=== PATIENT | female | born 1960 | race Caucasian/White ===

== ENCOUNTER 2023-05-02 09:12 | Emergency (ER) | payer OTHER, SELFPAY ==
[2023-05-02] VITALS (98 sets, daily range): BP systolic 87–196; BP diastolic 59–124; PULSE 61–88; RESP 20; TEMP 36.6; O2SAT 89–99; BMI 24.8
--- NOTE | 2023-05-02 09:34 | ED_ITS ---
HPI - General Adult General Chief complaint: Chest Pain Stated complaint: Chest tight, jaw pain Time Seen by Provider: 05/02/23 09:34 History of Present Illness HPI narrative: pt has reflux. last week had similar episode that lasted 2 hours, today pain started at 7am, that radiates to L jaw. has taken omeprazole x2 with no relief. pt feels like it is her reflux. 62-year-old woman presenting to the emergency department with concern of chest and jaw pain. This is been going on now for about 2-1/2 hours. Has been feeling exacerbation of what she would think is her usual heartburn/reflux intermittently since last week. Started taking omeprazole again intermittently. Took a couple doses of that along with liquid antacid which usually settles things and just has not made a difference today. No symptoms in her extremities. This pain is a pressure. She demonstrates to her midsternal area. No cough or cold symptoms. No fever. No shortness of breath. She does smoke. Brother 2 weeks ago from heart attack? Father from [place] at age 62. Apparently she herself had extensive evaluation partially related other illness not so long ago that she says was clear from cardiovascular standpoint. No radicular pain into her extremities. Accompanied here by her . Currently without healthcare insurance. Notes that does not qualify for state health insurance. Related Data Home Medications Medication Instructions Recorded Confirmed atorvastatin 20 mg tablet 20 mg PO DAILY 05/02/23 05/02/23 buspirone 10 mg tablet 10 mg PO BID 05/02/23 05/02/23 lisinopril 40 mg tablet 40 mg PO DAILY 05/02/23 05/02/23 Allergies Allergy/AdvReac Type Severity Reaction Status Date / Time ketorolac [From Toradol] Allergy Intermediate Verified 05/02/23 09:23 Review of Systems Status of ROS: Reports: 6 or more systems reviewed and unremarkable except as noted in History and below PFS PFS Social History Smoking Status: Never smoker How often do you have a drink containing alcohol: never AUDIT-C Alcohol total score: 0 Non-prescribed substance use: denies use Exam Narrative: Exam Narrative: Ms. Chacon is pleasant. Does seem anxious. Breathing as if uncomfortable. Skin is warm and dry. Extremities are without edema. She is well-perfused. Lungs are clear. Though breathing is a little labored. Heart in regular rate and rhythm without murmur or gallop identified. Abdomen is soft and tender in the epigastrium. Oropharynx is generally trace erythema. Bright. She had not been noting sore throat. Const: Vital Signs, click to edit/add: Vital Signs - 24 hr 05/02/23 09:16 05/02/23 09:22 05/02/23 09:23 Temperature 97.9 F Pulse Rate 76 Pulse Rate [Pulse Oximeter] 82 Respiratory Rate 20 Blood Pressure 187/117 H Blood Pressure [Le ft Upper Arm] 187/117 H Pulse Oximetry 98 98 Oxygen Delivery Me thod Room Air Oxygen Flow Rate 05/02/23 09:30 05/02/23 09:32 05/02/23 09:33 Temperature Pulse Rate 77 79 80 Pulse Rate [Pulse Oximeter] Respiratory Rate Blood Pressure 196/124 H Blood Pressure [Le ft Upper Arm] Pulse Oximetry 99 99 98 Oxygen Delivery Me thod Oxygen Flow Rate 05/02/23 09:58 05/02/23 10:00 05/02/23 10:00 Temperature Pulse Rate 82 82 Pulse Rate [Pulse Oximeter] Respiratory Rate Blood Pressure 147/91 H Blood Pressure [Le ft Upper Arm] Pulse Oximetry 91 91 Oxygen Delivery Me thod Nasal Cannula Oxygen Flow Rate 2 05/02/23 10:02 05/02/23 10:03 05/02/23 10:08 Temperature Pulse Rate 85 84 81 Pulse Rate [Pulse Oximeter] Respiratory Rate Blood Pressure 151/93 H 131/85 Blood Pressure [Le ft Upper Arm] Pulse Oximetry 93 89 89 Oxygen Delivery Me thod Oxygen Flow Rate 05/02/23 10:09 05/02/23 10:15 05/02/23 10:16 Temperature Pulse Rate 79 80 84 Pulse Rate [Pulse Oximeter] Respiratory Rate Blood Pressure 138/86 138/97 H Blood Pressure [Le ft Upper Arm] Pulse Oximetry 92 91 91 Oxygen Delivery Me thod Oxygen Flow Rate 05/02/23 10:30 05/02/23 10:31 05/02/23 10:32 Temperature Pulse Rate 72 72 74 Pulse Rate [Pulse Oximeter] Respiratory Rate Blood Pressure 142/85 H Blood Pressure [Le ft Upper Arm] Pulse Oximetry 96 96 95 Oxygen Delivery Me thod Oxygen Flow Rate 05/02/23 10:47 05/02/23 10:48 05/02/23 11:00 Temperature Pulse Rate 76 74 70 Pulse Rate [Pulse Oximeter] Respiratory Rate Blood Pressure 149/94 H Blood Pressure [Le ft Upper Arm] Pulse Oximetry 97 98 97 Oxygen Delivery Me thod Oxygen Flow Rate 05/02/23 11:02 05/02/23 11:20 05/02/23 11:24 Temperature Pulse Rate 74 72 76 Pulse Rate [Pulse Oximeter] Respiratory Rate Blood Pressure 140/84 H 175/102 H Blood Pressure [Le ft Upper Arm] Pulse Oximetry 96 97 94 Oxygen Delivery Me thod Oxygen Flow Rate 05/02/23 11:30 05/02/23 11:31 05/02/23 11:38 Temperature Pulse Rate 72 75 Pulse Rate [Pulse Oximeter] Respiratory Rate Blood Pressure 128/89 Blood Pressure [Le ft Upper Arm] Pulse Oximetry 96 96 Oxygen Delivery Me thod Oxygen Flow Rate 05/02/23 11:39 05/02/23 11:49 05/02/23 12:02 Temperature Pulse Rate 72 Pulse Rate [Pulse Oximeter] Respiratory Rate Blood Pressure 142/82 H 135/82 136/82 Blood Pressure [Le ft Upper Arm] Pulse Oximetry 95 Oxygen Delivery Me thod Oxygen Flow Rate 05/02/23 12:18 05/02/23 12:27 05/02/23 12:30 Temperature Pulse Rate 69 69 68 Pulse Rate [Pulse Oximeter] Respiratory Rate Blood Pressure 123/77 Blood Pressure [Le ft Upper Arm] Pulse Oximetry 96 95 96 Oxygen Delivery Me thod Oxygen Flow Rate 05/02/23 12:32 05/02/23 12:47 05/02/23 12:48 Temperature Pulse Rate 68 71 69 Pulse Rate [Pulse Oximeter] Respiratory Rate Blood Pressure 125/80 113/73 Blood Pressure [Le ft Upper Arm] Pulse Oximetry 96 94 96 Oxygen Delivery Me thod Oxygen Flow Rate 05/02/23 13:00 05/02/23 13:02 05/02/23 13:03 Temperature Pulse Rate 68 73 74 Pulse Rate [Pulse Oximeter] Respiratory Rate Blood Pressure 125/83 Blood Pressure [Le ft Upper Arm] Pulse Oximetry 96 96 95 Oxygen Delivery Me thod Oxygen Flow Rate 05/02/23 13:16 05/02/23 13:30 05/02/23 13:32 Temperature Pulse Rate 87 70 71 Pulse Rate [Pulse Oximeter] Respiratory Rate Blood Pressure 144/101 H 154/95 H Blood Pressure [Le ft Upper Arm] Pulse Oximetry 94 93 93 Oxygen Delivery Me thod Oxygen Flow Rate 05/02/23 13:33 05/02/23 13:49 05/02/23 14:00 Temperature Pulse Rate 72 70 68 Pulse Rate [Pulse Oximeter] Respiratory Rate Blood Pressure 122/74 Blood Pressure [Le ft Upper Arm] Pulse Oximetry 94 93 93 Oxygen Delivery Me thod Oxygen Flow Rate 05/02/23 14:02 05/02/23 14:17 Temperature Pulse Rate 68 69 Pulse Rate [Pulse Oximeter] Respiratory Rate Blood Pressure 114/86 108/79 Blood Pressure [Le ft Upper Arm] Pulse Oximetry 92 95 Oxygen Delivery Me thod Oxygen Flow Rate Course Vital Signs Vital signs: Initial Vital Signs Temperature 97.9 F 05/02/23 09:16 Temperature Source Temporal Artery Scan 05/02/23 09:16 Pulse Rate 82 05/02/23 09:16 Respiratory Rate 20 05/02/23 09:16 Blood Pressure 187/117 H 05/02/23 09:16 Blood Pressure Mean 140 H 05/02/23 09:16 Blood Pressure Position Supine 05/02/23 09:16 Pulse Oximetry 98 05/02/23 09:16 Oxygen Delivery Method Room Air 05/02/23 09:16 Vital Signs Temperature 97.9 F 05/02/23 09:16 Pulse Rate 82 05/02/23 09:16 Respiratory Rate 20 05/02/23 09:16 Blood Pressure 187/117 H 05/02/23 09:16 Pulse Oximetry 98 05/02/23 09:16 Oxygen Delivery Method Room Air 05/02/23 09:16 Temperature 97.9 F 05/02/23 09:16 Pulse Rate 69 05/02/23 14:17 Respiratory Rate 20 05/02/23 09:16 Blood Pressure 108/79 05/02/23 14:17 Pulse Oximetry 95 05/02/23 14:17 Oxygen Delivery Method Nasal Cannula 05/02/23 10:00 Oxygen Flow Rate 2 05/02/23 10:00 Medications Administered Medications: Generic Name Dose Route Start Last Admin Trade Name Freq PRN Reason Stop Dose Admin Nitroglycerin/Dextrose 25,000 mcg in 250 mls @ 3 mls/hr 05/02/23 10:56 05/02/23 13:34 Nitroglycerin/Dextrose IVPB 30 mcg/min .TITRATE PRN 18 mls/hr chest pain Infusion 5 MCG/MIN Heparin Sodium/Dextrose 25,000 unit in 500 mls @ 0 mls/hr 05/02/23 11:45 05/02/23 13:47 Heparin IV 750 unit/hr .Q0M SHERRI 15 mls/hr Administration Protocol Per Protocol Morphine Sulfate 4 mg 05/02/23 10:23 05/02/23 10:32 Morphine 4 Mg/Ml Inj IVP 4 mg ONCE PRN Administration Pain Nitroglycerin 0.4 mg 05/02/23 10:00 05/02/23 10:09 Nitroglycerin 0.4 Mg Tab.Subl SUBLINGUAL 0.4 mg Q5M PRN Administration Pain Discontinued Medications Generic Name Dose Route Start Last Admin Trade Name Freq PRN Reason Stop Dose Admin Aspirin 324 mg 05/02/23 10:09 05/02/23 10:12 Aspirin 81 Mg Tab.Chew PO 05/02/23 10:10 324 mg ONCE ONE Administration Fentanyl 50 mcg 05/02/23 10:55 05/02/23 11:02 Fentanyl 100 Mcg/2 Ml Inj IVP 05/02/23 10:56 50 mcg ONCE ONE Administration Heparin Sodium (Porcine) 3,800 unit 05/02/23 11:31 05/02/23 13:45 Heparin 5,000 Unit/0.5 Ml Inj 60 unit/kg (3800 unit) 05/02/23 11:32 3,800 unit IVP Administration ONCE ONE Hydromorphone HCl 0.5 mg 05/02/23 12:46 05/02/23 12:51 Hydromorphone 0.5 Mg/0.5 Ml Inj IVP 05/02/23 12:47 0.5 mg ONCE ONE Administration Sodium Chloride 500 mls @ 500 mls/hr 05/02/23 09:42 05/02/23 11:00 0.9 % Sodium Chloride 500 Ml IV 05/02/23 10:41 Infused .Q1H ONE Infusion Lidocaine/Aluminum/Magnesium/Simeth 30 ml 05/02/23 10:23 05/02/23 10:35 Mag Hydrox/Aluminum Hyd/Simeth 30 Ml Oral.Susp PO 05/02/23 10:24 30 ml ONCE ONE Administration Lorazepam 0.5 mg 05/02/23 09:43 05/02/23 09:56 Lorazepam 2 Mg/Ml Inj IVP 05/02/23 09:44 0.5 mg ONCE ONE Administration Morphine Sulfate 4 mg 05/02/23 09:42 05/02/23 09:56 Morphine 4 Mg/Ml Inj IVP 05/02/23 09:43 4 mg ONCE ONE Administration Nitroglycerin 0.4 mg 05/02/23 09:42 05/02/23 09:53 Nitroglycerin 0.4 Mg Tab.Subl SUBLINGUAL 05/02/23 09:43 0.4 mg ONCE ONE Administration Medical Decision Making MDM Narrative Medical decision making narrative: Ms. Chacon would like something to relieve her discomfort particularly focused on her stomach/GERD. I did offer GI cocktail and we discussed morphine. However upon leaving her room to place orders, informed of point of care troponin at 0.14. I have ordered for nitroglycerin. Certainly has room for this with her blood pressure. Would have concern about ACS here. Symptoms just seem atypical for pulmonary embolus. No infectious prodrome. Certainly could be GERD related with maybe even some spasm of the esophagus. Pericarditis? Pneumomediastinum or pneumothorax? Initiating low-dose fluid bolus and repeat nitroglycerin. This did not appear to change her pain. Morphine reportedly more effective per my conversation with nursing. Also was given lorazepam. Initial EKG as below look to be without ischemic changes. Chest x-ray reviewed by me looks to show cardiomegaly but without infiltrate or pneumothorax. Repeated morphine dose due to persistent pain. Also ordered for aspirin. Initiating nitro drip. I suppose could have concurrent GERD. GI cocktail tried without affect. Recheck troponin with unchanged EKG at around 90 minutes is anticipating conversation with Cardiology. The troponin has gone up from 0.14 to 2.3. Does appear to be ACS/non-STEMI. Anticipating heparin drip. Pain continuing so given fentanyl. Cardiology with further concerns and so will proceed with dissection scan. Held on heparin drip pending the scan. This is unremarkable however there is T1 compression fracture. Also some atelectatic changes favored in the posterior lungs. I do review these images myself. TECHNIQUE: CT chest without contrast and CT chest, abdomen and pelvis acquired with 95 cc Isovue 370 IV contrast, dissection protocol. COMPARISON: Chest radiograph performed today. FINDINGS: CTA: No evidence acute intramural hematoma identified on noncontrast chest CT. Left 3 vessel aortic arch. The thoracic and abdominal aorta are normal in course and caliber. No evidence of aortic aneurysm or dissection. Mild atherosclerotic plaques involving the abdominal aorta. Celiac, SMA and ABHINAV are patent. Mild ostial stenosis of the main renal arteries bilaterally. Accessory right renal artery is patent. Atherosclerotic calcifications of the iliofemoral arteries without significant luminal narrowing. CHEST: Cardiovascular structures: The heart is normal size. No pericardial effusion. Normal size of the main pulmonary artery. Mediastinum and kenny: No mass or adenopathy. Lungs and pleura: Respiratory motion. Elevation of the left hemidiaphragm. Dependent ground-glass opacities in the upper and lower lobes. No pleural effusion or pneumothorax. Chest wall and axilla: No mass or adenopathy. ABDOMEN AND PELVIS: Liver: Postoperative changes following left hepatectomy. Gallbladder and bile ducts: Gallbladder is surgically absent. Mildly dilated CBD measuring 9 mm. Pneumobilia. Pancreas: Unremarkable. Spleen: Unremarkable. Adrenal glands: Unremarkable. Kidneys: Unremarkable. GI tract: Unremarkable. Vascular structures: As above. Lymph nodes: Unremarkable. Miscellaneous: Unremarkable. No free air or significant free fluid. Pelvic Organs: Partially decompressed bladder. Uterus is surgically absent. Bones: Mild L1 superior endplate compression fracture, with approximately 30 percent loss of vertebral body height. No osseous retropulsion or osseous spinal canal stenosis at this level. Grade 1 anterolisthesis of L4 on L5 secondary to severe facet arthropathy. Multilevel degenerative disc disease involving the thoracolumbar spine. IMPRESSION: 1. No evidence of acute aortic syndrome. 2. Acute appearing L1 superior endplate compression fracture with approximately 30 percent loss of vertebral body height. No significant retropulsion. 3. Postoperative changes following left hepatectomy and cholecystectomy. Mild dilation of the common bile duct which may be secondary to reservoir effect. Recommend correlation with liver function tests. 4. Respiratory motion with dependent ground-glass opacities in both lungs, which may be secondary to atelectasis versus less likely pneumonia Continued pain so given dosing of Dilaudid. Accepted by Cardiology to [facility] but with 4+ hour wait. Repeated troponin now at 1.41 Updated cardiology. 2:40 p.m. still with some pain. Anticipating re-dosing opiate. Repeating EKG. Reviewed by me looks like she might be inverting her T-waves in 2 and lateral leads. 245 p.m. spoke with hospitalist from [place] who had immediate bed availability. Accepting pending call back. Continuing on nitro drip of on clear effect other than controlling blood pressures and heparin drip. Also low O2 via nasal cannula with sats in the mid 90s. These actually seem to have coincided with dosing of morphine. Climbing troponins and difficulty controlling pain. Lab Data Lab results reviewed: Yes I reviewed the patient's lab results Labs: Lab Results 05/02/23 05/02/23 05/02/23 Range/Units 09:25 11:10 12:27 WBC 4.47 L (4.50-11.00) K/uL RBC 5.85 H (4.00-5.20) m/uL Hgb 16.9 H (12.0-16.0) gm/dL Hct 52.8 H (33.0-51.0) % MCV 90 (80-100) fL MCH 29 (26-34) pg MCHC 32 (32-36) gm/dL RDW Coeff of Alida 16.4 H (11.5-15.5) % Plt Count 314 (140-440) K/uL Neut % (Auto) 48.3 (42.0-72.0) % Lymph % (Auto) 35.6 (20-44) % Gooding % (Auto) 14.8 H (0.0-11.0) % Eos % (Auto) 0.2 (0.0-7.0) % Baso % (Auto) 0.9 (0.0-3.0) % Neut # (Auto) 2.20 (1.7-7.0) K/uL Lymph # (Auto) 1.60 (0.90-2.90) K/uL Gooding # (Auto) 0.70 (0.00-0.90) K/UL Eos # (Auto) 0.00 (0.00-0.50) K/uL Baso # (Auto) 0.00 (0.00-0.30) K/uL Abs Immat Gran (auto) 0.00 (0.00-0.30) K/uL Imm/Tot Granulo (auto) 0.2 % INR 1.10 (0.91-1.10) APTT 30 (23-33) Seconds D-Dimer Quant (PE/DVT) 0.27 (0.00-0.50) ug/ml Sodium 137 (135-149) mmol/L Potassium 4.1 (3.6-5.1) mmol/L Chloride 103 (96-114) mmol/L Carbon Dioxide 23 (20-32) mmol/L Anion Gap 11 (7-15) mEq/L BUN 16 (7-30) mg/dL Creatinine 0.7 (0.5-1.5) mg/dL Estimated Creat Clear 47.01 Estimated GFR 97 ml/min Glucose 111 (60-115) mg/dL Calcium 9.8 (8.4-10.6) mg/dL Total Bilirubin 0.4 (0.1-1.5) mg/dL Direct Bilirubin 0.2 (0.0-0.5) mg/dL AST 25 (12-35) U/L ALT 15 (4-35) U/L Alkaline Phosphatase 67 (40-150) U/L Troponin I 0.18 H* Cancelled (0.01-0.04) ng/mL NT-Pro-B Natriuret Pep 478 pg/mL Total Protein 7.2 (6.0-8.3) g/dL Albumin 4.5 (3.3-5.0) g/dL Lipase 202 (23-300) U/L Lab Acknowledgement Test Added POC Troponin I 0.14 H 0.26 H (0.01-0.04) ng/ml 05/02/23 Range/Units 13:48 WBC (4.50-11.00) K/uL RBC (4.00-5.20) m/uL Hgb (12.0-16.0) gm/dL Hct (33.0-51.0) % MCV (80-100) fL MCH (26-34) pg MCHC (32-36) gm/dL RDW Coeff of Alida (11.5-15.5) % Plt Count (140-440) K/uL Neut % (Auto) (42.0-72.0) % Lymph % (Auto) (20-44) % Gooding % (Auto) (0.0-11.0) % Eos % (Auto) (0.0-7.0) % Baso % (Auto) (0.0-3.0) % Neut # (Auto) (1.7-7.0) K/uL Lymph # (Auto) (0.90-2.90) K/uL Gooding # (Auto) (0.00-0.90) K/UL Eos # (Auto) (0.00-0.50) K/uL Baso # (Auto) (0.00-0.30) K/uL Abs Immat Gran (auto) (0.00-0.30) K/uL Imm/Tot Granulo (auto) % INR (0.91-1.10) APTT (23-33) Seconds D-Dimer Quant (PE/DVT) (0.00-0.50) ug/ml Sodium (135-149) mmol/L Potassium (3.6-5.1) mmol/L Chloride (96-114) mmol/L Carbon Dioxide (20-32) mmol/L Anion Gap (7-15) mEq/L BUN (7-30) mg/dL Creatinine (0.5-1.5) mg/dL Estimated Creat Clear Estimated GFR ml/min Glucose (60-115) mg/dL Calcium (8.4-10.6) mg/dL Total Bilirubin (0.1-1.5) mg/dL Direct Bilirubin (0.0-0.5) mg/dL AST (12-35) U/L ALT (4-35) U/L Alkaline Phosphatase (40-150) U/L Troponin I (0.01-0.04) ng/mL NT-Pro-B Natriuret Pep pg/mL Total Protein (6.0-8.3) g/dL Albumin (3.3-5.0) g/dL Lipase (23-300) U/L Lab Acknowledgement POC Troponin I 1.41 H (0.01-0.04) ng/ml ECG Data Attestation: I personally reviewed and interpreted this ECG as follows: (Initial EKG reviewed by me shows a sinus rhythm. I see a PVC. Mildly enlarged P-wave. Rate of 73. No clear ischemic changes. The 2nd EKG approximally an hour later looks to be unchanged other than absence and PVCs.) Critical Care Time Critical Care Time Total Critical Care Time in Minutes: 60 Discharge Plan Discharge Clinical Impression: ACS (acute coronary syndrome) Patient Disposition: Xfer Other Discharge Location: [facility] Condition: Stable Prescriptions: No Action buspirone 10 mg tablet 10 mg PO BID lisinopril 40 mg tablet 40 mg PO DAILY atorvastatin 20 mg tablet 20 mg PO DAILY Follow Up/Referrals: Provider,Not a Local [Primary Care Provider] - Stand Alone Forms: ID [employer] Info Instructions
--- NOTE | 2023-05-02 09:43 | CRLHL7_ITS ---
For Patients: As a result of the Century Cures Act, medical imaging exams and procedure reports are released immediately into your electronic medical record. You may view this report before your referring provider. If you have questions, please contact your health care provider. INDICATION: STERNAL CHEST PAIN TECHNIQUE: Chest 1 view COMPARISON: None FINDINGS: Cardiac silhouette is enlarged. Tortuosity aorta. Lungs clear. Degenerative changes. IMPRESSION: No acute findings. Dictated by Alan Uribe MD @ 05/02/2023 10:12:56 AM (Electronically Signed)
[2023-05-02] MEDS: NITROGLYCERIN 0.4 MG TAB.SUBL SUBLINGUAL ×3 (09:53→10:09)
[2023-05-02 09:55] LABS: Basophils Percent Auto 0.9 % (0.0-3.0); Eosinophils Percent Auto 0.2 % (0.0-7.0); Hematocrit 52.8 % (33.0-51.0); Hemoglobin* 16.9 gm/dL (12.0-16.0); Immature Granulocytes Pct Auto 0.2 %; Lymphocytes Percent Auto 35.6 % (20-44); Mean Corpuscular HGB Conc 32 gm/dL (32-36); Mean Corpuscular Hemoglobin 29 pg (26-34); Mean Corpuscular Volume 90 fL (80-100); Monocytes Percent Auto 14.8 % (0.0-11.0); Neutrophils Percent Auto 48.3 % (42.0-72.0); Platelet Count* 314 K/uL (140-440); RDW Coefficient of Variation % 16.4 % (11.5-15.5); Red Blood Count 5.85 m/uL (4.00-5.20); White Blood Count* 4.47 K/uL (4.50-11.00)
[2023-05-02] MEDS: 0.9 % SODIUM CHLORIDE 500 ML 500 ML IV (09:55)
[2023-05-02] MEDS: MORPHINE 4 MG/ML INJ IVP ×7 (09:56→21:49)
[2023-05-02] MEDS: LORazepam 2 MG/ML inj 0.5 MG IVP (09:56)
[2023-05-02 09:59] LABS: Slide Review Reflex No
--- NOTE | 2023-05-02 10:00 | ED.NURSE ---
1 ntg given at 0953 with no relief. ativan and morphine given. pt getting slight relief from that.
[2023-05-02 10:07] LABS: Chloride* 103 mmol/L (96-114); Potassium* 4.1 mmol/L (3.6-5.1); Sodium* 137 mmol/L (135-149)
[2023-05-02 10:08] LABS: Albumin* 4.5 g/dL (3.3-5.0)
[2023-05-02 10:10] LABS: Anion Gap 11 mEq/L (7-15); Carbon Dioxide* 23 mmol/L (20-32); Creatinine* 0.7 mg/dL (0.5-1.5); Est. Creatinine Clearance* 47.01; Estimated Glomerular Filt Rate 97 ml/min
[2023-05-02 10:11] LABS: Alkaline Phosphatase* 67 U/L (40-150); Aspartate Amino Transferase* 25 U/L (12-35); Bilirubin Direct* 0.2 mg/dL (0.0-0.5); Bilirubin Total* 0.4 mg/dL (0.1-1.5); Blood Urea Nitrogen* 16 mg/dL (7-30); Calcium* 9.8 mg/dL (8.4-10.6); Glucose* 111 mg/dL (60-115); Lipase* 202 U/L (23-300); Total Protein* 7.2 g/dL (6.0-8.3)
[2023-05-02 10:12] LABS: Alanine Aminotransferase* 15 U/L (4-35)
[2023-05-02] MEDS: ASPIRIN 81 MG TAB.CHEW 324 MG PO (10:12)
[2023-05-02 10:25] LABS: NT Pro B Type NatriureticPept* 478 pg/mL; Troponin I* 0.18 ng/mL (0.01-0.04)
[2023-05-02] MEDS: MAG HYDROX/ALUMINUM HYD/SIMETH 30 ML ORAL.SUSP PO (10:35)
--- NOTE | 2023-05-02 10:35 | ED.NURSE ---
pain increased to 7after 3 ntg. pain 3 after 2nd dose of morphine.
[2023-05-02] MEDS: fentaNYL 100 MCG/2 ML inj 50 MCG IVP (11:02)
[2023-05-02] MEDS: NITROGLYCERIN/DEXTROSE 25,000 MCG/250 ML BOTTLE 3 MCG IVPB (11:15)
[2023-05-02 11:22] LABS: Troponin, Point-of-Care* 0.14 ng/ml (0.01-0.04)
[2023-05-02 11:33] LABS: Troponin, Point-of-Care* 0.26 ng/ml (0.01-0.04)
--- NOTE | 2023-05-02 11:43 | CRLHL7_ITS ---
For Patients: As a result of the 21st Century Cures Act, medical imaging exams and procedure reports are released immediately into your electronic medical record. You may view this report before your referring provider. If you have questions, please contact your health care provider. INDICATION: Chest pain. TECHNIQUE: CT chest without contrast and CT chest, abdomen and pelvis acquired with 95 cc Isovue 370 IV contrast, dissection protocol. COMPARISON: Chest radiograph performed today. FINDINGS: CTA: No evidence acute intramural hematoma identified on noncontrast chest CT. Left 3 vessel aortic arch. The thoracic and abdominal aorta are normal in course and caliber. No evidence of aortic aneurysm or dissection. Mild atherosclerotic plaques involving the abdominal aorta. Celiac, SMA and ABHINAV are patent. Mild ostial stenosis of the main renal arteries bilaterally. Accessory right renal artery is patent. Atherosclerotic calcifications of the iliofemoral arteries without significant luminal narrowing. CHEST: Cardiovascular structures: The heart is normal size. No pericardial effusion. Normal size of the main pulmonary artery. Mediastinum and kenny: No mass or adenopathy. Lungs and pleura: Respiratory motion. Elevation of the left hemidiaphragm. Dependent ground-glass opacities in the upper and lower lobes. No pleural effusion or pneumothorax. Chest wall and axilla: No mass or adenopathy. ABDOMEN AND PELVIS: Liver: Postoperative changes following left hepatectomy. Gallbladder and bile ducts: Gallbladder is surgically absent. Mildly dilated CBD measuring 9 mm. Pneumobilia. Pancreas: Unremarkable. Spleen: Unremarkable. Adrenal glands: Unremarkable. Kidneys: Unremarkable. GI tract: Unremarkable. Vascular structures: As above. Lymph nodes: Unremarkable. Miscellaneous: Unremarkable. No free air or significant free fluid. Pelvic Organs: Partially decompressed bladder. Uterus is surgically absent. Bones: Mild L1 superior endplate compression fracture, with approximately 30 percent loss of vertebral body height. No osseous retropulsion or osseous spinal canal stenosis at this level. Grade 1 anterolisthesis of L4 on L5 secondary to severe facet arthropathy. Multilevel degenerative disc disease involving the thoracolumbar spine. IMPRESSION: 1. No evidence of acute aortic syndrome. 2. Acute appearing L1 superior endplate compression fracture with approximately 30 percent loss of vertebral body height. No significant retropulsion. 3. Postoperative changes following left hepatectomy and cholecystectomy. Mild dilation of the common bile duct which may be secondary to reservoir effect. Recommend correlation with liver function tests. 4. Respiratory motion with dependent ground-glass opacities in both lungs, which may be secondary to atelectasis versus less likely pneumonia. Please note that all CT scans at this facility use dose modulation, iterative reconstruction, and/or weight-based dosing when appropriate to reduce radiation dose to as low as reasonably achievable. Dictated by Delicia Lynn MD @ 05/02/2023 1:00:37 PM (Electronically Signed)
[2023-05-02] MEDS: HYDROmorphone 0.5 mg/0.5 ml inj IVP ×2 (12:51→16:53)
[2023-05-02 12:55] LABS: Prothrombin Time 14.9 Seconds
[2023-05-02 12:56] LABS: D Dimer Quantitative* 0.27 ug/ml (0.00-0.50); Partial Thromboplastin Time* 30 Seconds (23-33)
[2023-05-02] MEDS: HEPARIN 5,000 UNIT/0.5 ML INJ 3800 UNIT IVP (13:45)
[2023-05-02] MEDS: HEPARIN 25,000 UNIT/500 ML BAG 15 UNIT IV (13:47)
[2023-05-02 14:20] LABS: Troponin, Point-of-Care* 1.41 ng/ml (0.01-0.04)
[2023-05-02 18:06] LABS: Troponin I* 2.25 ng/mL (0.01-0.04)
--- NOTE | 2023-05-02 21:59 | ED.NURSE ---
Report given to EMS and updated her brother, Hank, per patient request.
--- NOTE | 2023-05-02 22:06 | ED.NURSE ---
Discharged 22:04. Waiting concrete vibrator operator back from [facility] at [place] to give report. Preethi stated she was just giving a medication and would call me back shortly.
--- NOTE | 2023-05-02 23:03 | ED.NURSE ---
Report given to [facility] at [facility].
== END 2023-05-02 22:10 | disposition other institution (70) ==
PROVIDERS: Emergency Provider Family Medicine
DX: I24.9 Acute ischemic heart disease, unspecified (principal)
CPT/HCPCS: 36415; 71045; 71275; 74174; 80048; 80076; 83690; 83880; 84484; 85025; 85379; 85610; 85730; 93005; 94761; 96365; 96375; 96376; 99284; 99285; 99291; A9270; J1170; J1644; J2060; J2270; J3010; J7030; Q9967

== ENCOUNTER 2023-05-02 21:50 | Outpatient (CLI) | payer OTHER, SELFPAY | END 2023-05-02 21:51 | disposition home or self-care (01) | LOC: AMB 05-04 17:17 | PROVIDERS: Visit Provider Emergency Medicine | DX: I24.9 Acute ischemic heart disease, unspecified (principal) | CPT/HCPCS: A0425; A0434 ==

== ENCOUNTER 2024-11-14 11:37 | Outpatient (CLI) | payer MEDICARE, OTHER, SELFPAY ==
--- NOTE | 2024-11-14 12:58 | P.ANES_ITS ---
Anesthesia Charges Start Date/Time Anesthesia Start Date: 11/14/24 Anesthesia Start Time: 13:57 Stop Date/Time Anesthesia Stop Date: 11/14/24 Anesthesia Stop Time: 14:49 Coding CPT Codes CPT Codes: ANES UPR LWR GI NDSC PX - 21159 ([id number]) P3 - PATIENT W/SEVERE SYS DISEASE, QK - SENIOR EXAMINER 2-4 CNCRNT ANES PROC, QX - ASSISTANT PRODUCER SVC W/ MD MED DIRECTION
--- NOTE | 2024-11-14 12:58 | W.ANESCHARGE ---
Anesthesia Charges Start Date/Time Anesthesia Start Date: 11/14/24 Anesthesia Start Time: 13:57 Stop Date/Time Anesthesia Stop Date: 11/14/24 Anesthesia Stop Time: 14:49 Coding CPT Codes CPT Codes: ANES UPR LWR GI NDSC PX - 10562 [id number]) P3 - PATIENT W/SEVERE SYS DISEASE, QK - CASH MANAGEMENT ASSOCIATE 2-4 CNCRNT ANES PROC, QX - BIOFUELS PRODUCTION ASSOCIATE SVC W/ MD MED DIRECTION
--- NOTE | 2024-11-14 14:54 | P.ANES_ITS ---
Anesthesia Charges Start Date/Time Anesthesia Start Date: 11/14/24 Anesthesia Start Time: 13:57 Stop Date/Time Anesthesia Stop Date: 11/14/24 Anesthesia Stop Time: 14:49 Coding CPT Codes CPT Codes: ANES UPR LWR GI NDSC PX - 46993 [id number]) P3 - PATIENT W/SEVERE SYS DISEASE, QK - TABLE WORKER PACKAGER 2-4 CNCRNT ANES PROC, QX - CUSTOMER SERVICE SPECIALIST SVC W/ MD MED DIRECTION
--- NOTE | 2024-11-14 14:54 | W.ANESCHARGE ---
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
== END 2024-11-14 11:38 | disposition home or self-care (01) ==
LOC: OP CLINIC 11:37
PROVIDERS: PCP Physician Assistant; Visit Provider Internal Medicine Gastroenterology
DX: Z12.11 Encounter for screening for malignant neoplasm of colon (principal); R19.7 Diarrhea, unspecified; Z86.0100 Personal history of colon polyps, unspecified; D12.2 Benign neoplasm of ascending colon; D12.4 Benign neoplasm of descending colon; K31.89 Other diseases of stomach and duodenum; Z98.890 Other specified postprocedural states
CPT/HCPCS: 00813; 43239; 45380; 45385; 88305; J2704; J3490